=== PATIENT | male | born 1955 | race Caucasian/White ===

== ENCOUNTER 2016-09-26 13:40 | Emergency (ER) | payer MEDICARE, MEDICAID ==
[2016-09-26] MEDS ORDERED: METHYLPRED SOD SUCC 125 MG/2 ML VIAL ONE (15:48)
[2016-09-26] MEDS ORDERED: DUONEB INH ONE (15:49)
== END 2016-09-26 17:21 | disposition home or self-care (01) ==
LOC: ER 13:40
DX: J44.1 Chronic obstructive pulmonary disease with (acute) exacerbation (principal); Z79.899 Other long term (current) drug therapy; F17.210 Nicotine dependence, cigarettes, uncomplicated
CPT/HCPCS: 36415; 36600; 71010; 80053; 82553; 82803; 83605; 83880; 84484; 85025; 85610; 85730; 87040; 93005; 94640; 96374; 99283; J2930

== ENCOUNTER 2016-09-30 10:33 | Emergency (ER) | payer OTHER, MEDICARE, MEDICAID ==
[2016-09-30] MEDS ORDERED: OPTIRAY 350 100 ML VIAL HMH IV ONE (10:34)
[2016-09-30] MEDS ORDERED: DILAUDID 1 MG/ML AMP ONE (15:35)
== END 2016-09-30 15:55 | disposition other institution (70) ==
LOC: ER 10:33
DX: S51.801A Unspecified open wound of right forearm, initial encounter (principal); V57.5XXA Driver of pick-up truck or van injured in collision with fixed or stationary object in traffic accident, initial encounter; N28.89 Other specified disorders of kidney and ureter; Z79.899 Other long term (current) drug therapy
CPT/HCPCS: 36415; 70450; 71260; 72125; 74177; 80053; 85025; 85610; 85730; 96374